=== PATIENT | female | born 1975 | race Caucasian/White ===

== ENCOUNTER 2023-10-14 13:35 | Outpatient (CLI) | payer OTHER | END 2023-10-14 14:48 | disposition home or self-care (01) | LOC: NST 13:35 | PROVIDERS: ATTEND Obstetrics & Gynecology Maternal & Fetal Medicine | DX: Z34.82 Encounter for supervision of other normal pregnancy, second trimester (principal) ==

== ENCOUNTER 2023-10-20 10:33 | Outpatient (CLI) | payer OTHER | END 2023-10-20 13:17 | disposition home or self-care (01) | LOC: NST 10:33 | PROVIDERS: ATTEND Obstetrics & Gynecology Maternal & Fetal Medicine | DX: O30.002 Twin pregnancy, unspecified number of placenta and unspecified number of amniotic sacs, second trimester (principal); Z3A.26 26 weeks gestation of pregnancy ==

== ENCOUNTER 2023-10-25 14:46 | Outpatient (CLI) | payer OTHER | END 2023-10-25 16:29 | disposition home or self-care (01) | LOC: NST 14:46 | PROVIDERS: ATTEND Obstetrics & Gynecology Maternal & Fetal Medicine | DX: Z34.92 Encounter for supervision of normal pregnancy, unspecified, second trimester (principal) ==

== ENCOUNTER 2023-11-15 16:18 | Outpatient (CLI) | payer OTHER | END 2023-11-15 17:16 | disposition home or self-care (01) | LOC: NST 16:18 | PROVIDERS: ATTEND Obstetrics & Gynecology Maternal & Fetal Medicine | DX: Z34.83 Encounter for supervision of other normal pregnancy, third trimester (principal) ==

== ENCOUNTER 2023-11-23 16:21 | Outpatient (CLI) | payer OTHER | END 2023-11-23 17:18 | disposition home or self-care (01) | LOC: NST 16:21 | PROVIDERS: ATTEND Obstetrics & Gynecology Maternal & Fetal Medicine | DX: Z34.83 Encounter for supervision of other normal pregnancy, third trimester (principal) ==

== ENCOUNTER 2023-12-01 12:42 | Outpatient (CLI) | payer OTHER | END 2023-12-01 13:20 | disposition home or self-care (01) | LOC: NST 12:42 | PROVIDERS: ATTEND Obstetrics & Gynecology | DX: Z34.83 Encounter for supervision of other normal pregnancy, third trimester (principal) ==

== ENCOUNTER → 2023-12-03 | Outpatient (CLI) | payer OTHER | END | disposition home or self-care (01) | LOC: NST 14:16 | PROVIDERS: ATTEND Obstetrics & Gynecology | DX: Z34.83 Encounter for supervision of other normal pregnancy, third trimester (principal) ==

== ENCOUNTER 2023-12-06 16:25 | Outpatient (CLI) | payer OTHER | END 2023-12-06 17:07 | disposition home or self-care (01) | LOC: NST 16:25 | PROVIDERS: ATTEND Obstetrics & Gynecology | DX: Z34.83 Encounter for supervision of other normal pregnancy, third trimester (principal) ==

== ENCOUNTER 2023-12-09 12:41 | Outpatient (CLI) | payer OTHER | END 2023-12-09 13:20 | disposition home or self-care (01) | LOC: NST 12:41 | PROVIDERS: ATTEND Obstetrics & Gynecology Maternal & Fetal Medicine | DX: Z34.83 Encounter for supervision of other normal pregnancy, third trimester (principal) ==

== ENCOUNTER 2023-12-12 13:20 | Outpatient (CLI) | payer OTHER | END 2023-12-12 14:53 | disposition home or self-care (01) | LOC: NST 13:20 | PROVIDERS: ATTEND Obstetrics & Gynecology Maternal & Fetal Medicine | DX: Z34.83 Encounter for supervision of other normal pregnancy, third trimester (principal) ==

== ENCOUNTER 2023-12-15 15:22 | Outpatient (CLI) | payer OTHER ==
[2023-12-15] MEDS ORDERED: CHILDREN'S ASPI81 MG PO (17:27)
[2023-12-15] MEDS ORDERED: PRENATAL TABLE1 EAC1 PO (17:27)
[2023-12-15] MEDS ORDERED: IRON236 MG PO (17:28)
[2023-12-15] MEDS ORDERED: DIALYVITE 800-1 EACH PO (17:28)
[2023-12-15] MEDS ORDERED: OBSTETRIX EC C1 EAC1 PO (17:28)
== END 2023-12-15 15:49 | disposition home or self-care (01) ==
LOC: NST 15:22
PROVIDERS: ATTEND Obstetrics & Gynecology Maternal & Fetal Medicine
DX: Z34.83 Encounter for supervision of other normal pregnancy, third trimester (principal)

== ENCOUNTER 2023-12-15 15:58 | Inpatient (IN) | payer OTHER ==
[~2023-12-15] VITALS: Ht 170.2 cm; Wt 2.3 kg
[2023-12-15] MEDS ORDERED: BETAMETHASONE ACETATE,SOD PHOS 30 MG/5 ML ML ONE (16:08)
[2023-12-15] MEDS ORDERED: MAGNESIUM SULFATE IN WATER 0.04 GM/ML IV.SOLN IV ONE (16:08)
[2023-12-15 17:09] LABS: URINE APPEARANCE Turbid; URINE BILIRRUBIN Negative (NEGATIVE); URINE BLOOD Trace; URINE COLOR Dark Yellow; URINE GLUCOSE Negative (NEGATIVE); URINE LEUKOCYTE Large; URINE NITRATE Negative
[2023-12-15 17:10] LABS: HEMATOCRIT 34.1 % (36.0-45.00); HEMOGLOBIN 11.3 g/dL (12.0-15.00); MEAN CELL VOLUME 91.6 fL (80.00-100.00); MEAN CORPUSCULAR HEMOGLOBIN 30.4 pg (27.00-32.0); MEAN CORPUSCULAR HGB CONC 33.2 g/dl (32.0-36.0); PLATELET COUNT 163 K/uL (150-450); RED BLOOD COUNT 3.72 M/uL (4.00-6.00); RED CELL DISTRIBUTION WIDTH 18.1 % (11.5-14.5)
[2023-12-15 17:13] LABS: URINE RBC 17.5 uL (0.0-20.8); URINE WBC 1514.7 uL (0.0-23.2)
[2023-12-15] MEDS ORDERED: LABETALOL HCL 100 MG/20 ML ML IV PUSH STA (17:24)
[2023-12-15] MEDS ORDERED: LABETALOL HCL 100 MG/20 ML ML ONE (17:25)
[2023-12-15] MEDS ORDERED: PRENATAL TABLE1 EAC1 PO (17:27)
[2023-12-15] MEDS ORDERED: CHILDREN'S ASPI81 MG PO (17:27)
[2023-12-15] MEDS ORDERED: IRON236 MG PO (17:28)
[2023-12-15] MEDS ORDERED: OBSTETRIX EC C1 EAC1 PO (17:28)
[2023-12-15] MEDS ORDERED: DIALYVITE 800-1 EACH PO (17:28)
[2023-12-15] MEDS ORDERED: MAGNESIUM SULFATE IN WATER 500 ML IV SCH (17:30)
[2023-12-15] MEDS ORDERED: BETAMETHASONE ACETATE,SOD PHOS 30 MG/5 ML ML IM ONE (17:30)
[2023-12-15 17:47] LABS: ALBUMIN 2.3 gm/dL (3.4-5.0); BILIRUBIN TOTAL 0.33 mg/dL (0.3-1.2); CALCIUM 8.5 mg/dL (8.5-10.1); CREATININE SERUM 0.94 mg/dL (0.55-1.02); GFR 63.83; GLOBULINA 3.3 G/DL (2.4-3.5); POTASSIUM 4.22 mEq/L (3.5-5.1); PROTHROMBIN TIME 9.6 SECONDS (9.0-11.5); TOTAL PROTEIN 5.6 gm/dL (6.4-8.2)
[2023-12-15 17:48] LABS: INR < 0.93; PARTIAL THROMBOPLASTIN TIME 26.8 SECONDS (22.0-34.0)
[2023-12-15] MEDS ORDERED: LABETALOL HCL 200 MG TABLET PO ONE (17:48)
[2023-12-15] MEDS ORDERED: LABETALOL HCL 200 MG TABLET PO SCH (17:51)
[2023-12-15 18:04] LABS: URINE BACTERIA > 9821.5 uL (0.0-1933); URINE EPITHELIAL CELLS > 201.7 uL (0.0-38.8); URINE MUCUS SCANT; URINE PROTEIN 100 (NEGATIVE)
[2023-12-15 18:05] LABS: URINE CRYSTALS FEW /HPF
[2023-12-16] MEDS ORDERED: BETAMETHASONE ACETATE,SOD PHOS 30 MG/5 ML ML IM ONE ×2 (04:40→16:40)
[2023-12-16] MEDS ORDERED: CEFOXITIN SODIUM 2,000 MG VIAL IV SCH (12:00)
[2023-12-16] MEDS ORDERED: CITRIC ACID/SODIUM CITRATE 30 ML BLIST.PACK PO SCH (12:00)
[2023-12-16] MEDS ORDERED: ERYTHROMYCIN BASE 3.5 GM OINT...G. OP ONE (12:25)
[2023-12-16] MEDS ORDERED: OXYTOCIN 10 UNITS/ML VIAL ONE (12:25)
[2023-12-16] MEDS ORDERED: OXYTOCIN 10 UNITS/ML VIAL IV ONE (14:00)
[2023-12-16] MEDS ORDERED: ERYTHROMYCIN BASE 1 GM TUBE OP ONE (14:00)
[2023-12-16] MEDS ORDERED: MAGNESIUM SULFATE IN WATER 0.04 GM/ML IV.SOLN IV ONE (15:37)
[2023-12-16] MEDS ORDERED: KETOROLAC TROMETHAMINE 30 MG VIAL ONE (15:45)
[2023-12-16] MEDS ORDERED: OXYTOCIN 40 UNITS in RINGERS SOLUTION,LACTATED 1,000 ML IV SCH (15:45)
[2023-12-16] MEDS ORDERED: RINGERS SOLUTION,LACTATED 1,000 ML IV SCH (15:45)
[2023-12-16] MEDS ORDERED: MAGNESIUM SULFATE IN WATER 500 ML IV SCH (15:45)
[2023-12-16] MEDS ORDERED: MEPERIDINE HCL/PF 50 MG,MEPERIDINE HCL/PF 25 MG IM PRN (16:00)
[2023-12-16] MEDS ORDERED: LABETALOL HCL 100 MG/20 ML ML IV PRN (16:00)
[2023-12-16] MEDS ORDERED: KETOROLAC TROMETHAMINE 30 MG VIAL IM ONE (16:00)
[2023-12-16] MEDS ORDERED: PROMETHAZINE HCL 50 MG/ML AMPUL IM PRN (16:15)
[2023-12-16] MEDS ORDERED: hydrOXYzine HCL 50 MG/ML VIAL IM PRN (16:15)
[2023-12-16] MEDS ORDERED: CEFAZOLIN SODIUM 1,000 MG VIAL IV SCH ×2 (17:00→21:00)
[2023-12-16] MEDS ORDERED: SIMETHICONE 125 MG CAPSULE PO SCH (17:00)
[2023-12-16] MEDS ORDERED: LABETALOL HCL 200 MG TABLET PO SCH (17:00)
[2023-12-16 17:13] LABS: ABG PH 7.206 (7.35-7.45); ABG PO2 11.8 mmHg (80-100); ABG pCO2 66.6 mmHg (35-45)
[2023-12-16 17:14] LABS: BASE EXCESS -3.7 mmol/l; BICARBONATE 25.8 mmol/l (23-25); SaO2 8.9 %; Tco2 27.8 mmol/l
[2023-12-16 17:15] LABS: ABG PH 7.296 (7.35-7.45); ABG pCO2 46.5 mmHg (35-45); o2 21 %
[2023-12-16 17:16] LABS: ABG PO2 29.4 mmHg (80-100); BASE EXCESS -4.5 mmol/l; BICARBONATE 22.1 mmol/l (23-25); SaO2 46.8 %; Tco2 23.5 mmol/l; o2 21 %
[2023-12-16] MEDS ORDERED: KETOROLAC TROMETHAMINE 10 MG TABLET PO SCH (18:00)
[2023-12-16 20:39] LABS: HEMATOCRIT 33.9 % (36.0-45.00); HEMOGLOBIN 11.2 g/dL (12.0-15.00); MEAN CELL VOLUME 91.8 fL (80.00-100.00); MEAN CORPUSCULAR HEMOGLOBIN 30.4 pg (27.00-32.0); MEAN CORPUSCULAR HGB CONC 33.1 g/dl (32.0-36.0); PLATELET COUNT 177 K/uL (150-450); RED CELL DISTRIBUTION WIDTH 18.9 % (11.5-14.5)
[2023-12-16] MEDS ORDERED: KETOROLAC TROMETHAMINE 30 MG VIAL IV SCH (21:14)
[2023-12-16] MEDS ORDERED: ACETAMINOPHEN 500 MG GEL..CAP PO PRN (21:15)
[2023-12-17 06:21] LABS: ALBUMIN 2.1 gm/dL (3.4-5.0); BILIRUBIN TOTAL 0.26 mg/dL (0.3-1.2); CALCIUM 7.9 mg/dL (8.5-10.1); CREATININE SERUM 1.01 mg/dL (0.55-1.02); GFR 58.75; GLOBULINA 2.7 G/DL (2.4-3.5); POTASSIUM 4.75 mEq/L (3.5-5.1); TOTAL PROTEIN 4.8 gm/dL (6.4-8.2)
[2023-12-17 06:28] LABS: MAGNESIUM 4.9 mg/dL (1.8-2.4)
[2023-12-17] MEDS ORDERED: OxyCODONE HCL/APAP UD (PERCOCET) PO PRN (09:30)
[2023-12-17] MEDS ORDERED: ENOXAPARIN SODIUM 40 MG/0.4 ML SYRINGE SUBCUTANEO SCH (10:00)
[2023-12-17 12:46] LABS: HEMATOCRIT 33.2 % (36.0-45.00); HEMOGLOBIN 10.9 g/dL (12.0-15.00); MEAN CELL VOLUME 93.3 fL (80.00-100.00); MEAN CORPUSCULAR HEMOGLOBIN 30.6 pg (27.00-32.0); MEAN CORPUSCULAR HGB CONC 32.8 g/dl (32.0-36.0); RED BLOOD COUNT 3.56 M/uL (4.00-6.00); RED CELL DISTRIBUTION WIDTH 18.9 % (11.5-14.5)
[2023-12-17 12:48] LABS: PLATELET COUNT 193 K/uL (150-450)
[2023-12-17] MEDS ORDERED: DOCUSATE CALCIUM 240 MG CAPSULE PO SCH (21:00)
[2023-12-18 11:19] LABS: HEMATOCRIT 31.4 % (36.0-45.00); HEMOGLOBIN 10.4 g/dL (12.0-15.00); MEAN CELL VOLUME 91.4 fL (80.00-100.00); MEAN CORPUSCULAR HEMOGLOBIN 30.2 pg (27.00-32.0); MEAN CORPUSCULAR HGB CONC 33.1 g/dl (32.0-36.0); PLATELET COUNT 164 K/uL (150-450); RED BLOOD COUNT 3.44 M/uL (4.00-6.00)
[2023-12-18 11:47] LABS: ALBUMIN 2.2 gm/dL (3.4-5.0); BILIRUBIN TOTAL 0.28 mg/dL (0.3-1.2); CALCIUM 8.4 mg/dL (8.5-10.1); CREATININE SERUM 1.04 mg/dL (0.55-1.02); GFR 56.8; GLOBULINA 2.8 G/DL (2.4-3.5); POTASSIUM 4.27 mEq/L (3.5-5.1)
[2023-12-18] MEDS ORDERED: CYCLOBENZAPRINE HCL 5 MG TABLET PO PRN (13:45)
[2023-12-18] MEDS ORDERED: GABAPENTIN 400 MG CAPSULE PO SCH (17:00)
[2023-12-18] MEDS ORDERED: ACETAMINOPHEN 500 MG GEL..CAP PO SCH (18:00)
[2023-12-19 15:41] LABS: HEMATOCRIT 31.9 % (36.0-45.00); HEMOGLOBIN 10.5 g/dL (12.0-15.00); MEAN CELL VOLUME 93.6 fL (80.00-100.00); MEAN CORPUSCULAR HEMOGLOBIN 30.8 pg (27.00-32.0); MEAN CORPUSCULAR HGB CONC 32.9 g/dl (32.0-36.0); PLATELET COUNT 180 K/uL (150-450); RED BLOOD COUNT 3.41 M/uL (4.00-6.00); RED CELL DISTRIBUTION WIDTH 18.6 % (11.5-14.5)
[2023-12-19 16:08] LABS: ALBUMIN 2.3 gm/dL (3.4-5.0); BILIRUBIN TOTAL 0.24 mg/dL (0.3-1.2); CALCIUM 8.5 mg/dL (8.5-10.1); CREATININE SERUM 0.9 mg/dL (0.55-1.02); GFR 67.11; POTASSIUM 4.46 mEq/L (3.5-5.1); TOTAL PROTEIN 5.3 gm/dL (6.4-8.2)
[2023-12-20] MEDS ORDERED: MAGNESIUM HYDROXIDE 30 ML BLIST.PACK PO SCH (09:00)
[2023-12-21] MEDS ORDERED: OXYC1TAB9 PO (17:23)
[2023-12-21] MEDS ORDERED: LOVENOX40 MG/0.4 SUBCUTANEO (17:23)
[2023-12-21] MEDS ORDERED: LABETALOL HCL200 MG PO (17:23)
== END 2023-12-21 21:46 | disposition home or self-care (01) | DRG 788 ==
LOC: LDR 15:58 → O/R 12-16 15:18 → OB/GYN 12-16 16:13
PROVIDERS: Obstetrics & Gynecology; Obstetrics & Gynecology Gynecology; ADMIT Obstetrics & Gynecology Maternal & Fetal Medicine; ATTEND Obstetrics & Gynecology Maternal & Fetal Medicine
PROC: 4A1HXCZ Monitoring of Products of Conception, Cardiac Rate, External Approach (ICD-10-PCS; 2023-12-15)
PROC: 10D00Z1 Extraction of Products of Conception, Low, Open Approach (ICD-10-PCS; principal; 2023-12-16 14:30)
DX: O14.04 Mild to moderate pre-eclampsia, complicating childbirth (principal); O60.14X2 Preterm labor third trimester with preterm delivery third trimester, fetus 2; O32.2XX1 Maternal care for transverse and oblique lie, fetus 1; O30.043 Twin pregnancy, dichorionic/diamniotic, third trimester; Z3A.35 35 weeks gestation of pregnancy; Z37.2 Twins, both liveborn; Z20.822 Contact with and (suspected) exposure to COVID-19